=== PATIENT | female | born 1980 | race Caucasian/White ===

== ENCOUNTER 2025-03-11 10:28 | Emergency (ER) | payer MEDICAID ==
[~2025-03-11] VITALS: Ht 167.6 cm; Wt 70.0 kg
[2025-03-11] MEDS: MIDAZOLAM HCL 2 MG/2 ML VIAL IM ONE (11:01)
[2025-03-11] MEDS: OLANZAPINE 10 MG/VIAL IM ONE (11:01)
[2025-03-11 12:57] LABS: BASOPHILS % 0.6 % (0.0-2.0); EOSINOPHILS % 1.8 % (0.0-5.0); HEMATOCRIT. 34.6 % (36.0-48.0); HEMOGLOBIN. 11.7 g/dL (12.0-16.0); LYMPHOCYTES % 25.7 % (20.0-50.0); MEAN CORPUSCULAR HEMOGLOBIN 27.1 pg (28.0-32.0); MEAN CORPUSCULAR HGB CONC 33.7 g/dL (31.0-37.0); MEAN CORPUSCULAR VOLUME 80.5 fL (81.0-99.0); MEAN PLATELET VOLUME 7.2 fl (7.4-10.4); MONOCYTES % 7.2 % (2.0-8.0); NEUTROPHILS % 64.7 % (40.0-76.0); PLATELET 287 x1000/uL (130-400); RED CELL DISTRIBUTION WIDTH 15.1 % (11.6-14.6); WHITE BLOOD COUNT 7.8 x1000/uL (4.5-11.0)
[2025-03-11 13:10] LABS: CHLORIDE 104 mEq/L (98-107); SODIUM 138 mEq/L (136-145)
[2025-03-11 13:11] LABS: CARBON DIOXIDE 26 mEq/L (21-32)
[2025-03-11 13:12] LABS: CALCIUM 9.1 mg/dL (8.7-10.4)
[2025-03-11 13:16] LABS: CREATININE 0.6 mg/dL (0.6-1.0); GLUCOSE 85 mg/dL (70-105); UREA NITROGEN BLOOD 18 mg/dL (9-23)
[2025-03-11 13:17] LABS: ETHANOL BLOOD < 10 mg/dL (<10)
[2025-03-11 13:18] LABS: ACETAMINOPHEN < 2 ug/mL (10-30)
[2025-03-11 13:57] VITALS: O2SAT 100
[2025-03-11 15:26] LABS: CLARITY URINE CLEAR (CLEAR); COLOR URINE YELLOW (YELLOW); GLUCOSE URINE NEGATIVE (NEGATIVE); KETONES URINE NEGATIVE (NEGATIVE); LEUKOCYTE ESTERASE URINE NEGATIVE (NEGATIVE); NITRITE URINE NEGATIVE (NEGATIVE); OCCULT BLOOD URINE NEGATIVE (NEGATIVE); PROTEIN URINE NEGATIVE (NEGATIVE)
[2025-03-11 15:51] LABS: *AMPHETAMINES SCREEN URINE PRESUMPTIVE POSITIVE (NEGATIVE)
[2025-03-11 15:52] LABS: *BARBITURATES SCREEN URINE NEGATIVE (NEGATIVE); *BENZODIAZEPINES SCREEN URINE PRESUMPTIVE POSITIVE (NEGATIVE); *COCAINE SCREEN URINE NEGATIVE (NEGATIVE); METHADONE URINE SCREEN NEGATIVE (NEGATIVE)
[2025-03-11 15:53] LABS: CANNABINOID URINE SCREEN PRESUMPTIVE POSITIVE (NEGATIVE); ECSTASY MDMA SCREEN URINE NEGATIVE (NEGATIVE); OPIATES URINE SCREEN NEGATIVE (NEGATIVE); PHENCYCLIDINE URINE SCREEN NEGATIVE (NEGATIVE)
[2025-03-12 11:04] LABS: HCG SCREEN NEGATIVE
[2025-03-12 13:58] VITALS: TEMP 37.2
[2025-03-12] MEDS: RISPERIDONE 1MG TABLET PO SCH (21:56)
[2025-03-13 18:44] VITALS: BP 131/68; PULSE 59; RESP 16; O2SAT 99
== END 2025-03-13 18:59 ==
LOC: ER 10:28
DX: R45.851 Suicidal ideations (principal); F19.10 Other psychoactive substance abuse, uncomplicated; Z59.00 Homelessness unspecified; Z20.822 Contact with and (suspected) exposure to COVID-19; Z79.899 Other long term (current) drug therapy
CPT/HCPCS: 80305; 80048; 81003; 80307; 80329; 80320; 84703; 85025; 36415; 96372; 99291; 87426; J3490; J2250; Z7610 ×6; G0480